=== PATIENT | male | born 1945 | race Caucasian/White ===

== ENCOUNTER 2023-08-14 08:11 | Day surgery (SDC) | payer MEDICARE, OTHER ==
[2023-08-14] MEDS ORDERED: Propofol 200 MG/20 ML SDV ONE (08:59)
[2023-08-14] MEDS ORDERED: fentaNYL 50 MCG/ML SDV ONE (08:59)
[2023-08-14] MEDS ORDERED: Lactated Ringers 1,000 ML IV SCH (09:00)
[2023-08-14 11:02] VITALS: BP 147/87; PULSE 61
== END 2023-08-14 11:22 | disposition home or self-care (01) ==
LOC: JP.SDS 08:11
PROVIDERS: ATTEND Student in an Organized Health Care Education/Training Program
DX: K29.50 Unspecified chronic gastritis without bleeding (principal); K31.7 Polyp of stomach and duodenum; K22.70 Barrett's esophagus without dysplasia; I10 Essential (primary) hypertension; K21.9 Gastro-esophageal reflux disease without esophagitis
CPT/HCPCS: 43239; 88305; J2704; J3010; J7120

== ENCOUNTER 2024-01-08 05:44 | Day surgery (SDC) | payer MEDICARE, OTHER ==
[2024-01-08] MEDS ORDERED: ceFAZolin 2 GM in Sodium Chloride 0.9% 100 ML IV ONE (06:10)
[2024-01-08 06:20] LABS: HEMATOCRIT 41.1 % (38.4-49.7); HEMOGLOBIN 14.3 g/dL (12.9-16.9); MEAN CORPUSCULAR HEMOGLOBIN 31.8 pg (31.6-35.5); MEAN CORPUSCULAR HGB CONC 34.8 g/dL (31.6-35.5); MEAN CORPUSCULAR VOLUME 91.5 fL (81.4-99.0); RED BLOOD CELL COUNT 4.49 M/uL (4.14-5.76); WHITE BLOOD CELL COUNT,WBC 5.8 K/uL (3.2-11.0)
[2024-01-08 06:41] LABS: A/G RATIO 1.1 (1.2-2.2); ALANINE AMINOTRANSFERASE,ALT 33 U/L (12-78); ALBUMIN 3.6 g/dL (3.4-5.0); ALKALINE PHOSPHATASE 96 U/L (46-116); ASPARTATE AMNIOTRANSFERASE,AST 27 U/L (15-37); BILIRUBIN TOTAL 0.8 mg/dL (0.2-1.0); BLOOD UREA NITROGEN,BUN 18 mg/dL (7-18); CARBON DIOXIDE,CO2 29 mmol/L (21-32); CHLORIDE,CL 102 mmol/L (100-108); CREATININE 1.2 mg/dL (0.8-1.3); EST CRCL DRUG DOSING (CG) 59.74 mL/min; ESTIMATED GFR 63 mL/min (>60); GLUCOSE RANDOM 136 mg/dL (74-106); POTASSIUM,K 3.6 mmol/L (3.6-5.2); PROTEIN TOTAL,TP 6.8 g/dL (6.4-8.2); SODIUM,NA 139 mmol/L (140-148)
[2024-01-08 06:44] LABS: ANION GAP 11.6 mmol/L (5.0-14.0)
[2024-01-08] MEDS: Nozin Nasal Sanitizer NASBOTH ONE (06:46)
[2024-01-08] MEDS ORDERED: fentaNYL 100 MCG/2 ML SDV ONE (07:20)
[2024-01-08] MEDS: Lactated Ringers 1,000 ML IV SCH (07:20)
[2024-01-08] MEDS ORDERED: Midazolam 1 MG/ML 2 ML SDV ONE (07:20)
[2024-01-08] MEDS ORDERED: Propofol 200 MG/20 ML SDV ONE ×3 (07:20→09:12)
[2024-01-08] MEDS: ceFAZolin 2 GM in Premix Bag 1 BAG IV ONE (07:50)
[2024-01-08] MEDS ORDERED: Lactated Ringers 1,000 ML ONE (08:06)
[2024-01-08] MEDS: Bupivacaine 0.5% 50 ML MDV ONE (09:30)
[2024-01-08] MEDS ORDERED: Ondansetron 4 MG/2 ML SDV IVPUSH PRN (09:54)
[2024-01-08] MEDS ORDERED: Morphine 2 MG/ML SYRINGE IVPUSH PRN (09:54)
[2024-01-08] MEDS ORDERED: Magnesium Hydroxide 400 MG/5 ML Susp 30 ML Cup PO PRN (09:54)
[2024-01-08] MEDS ORDERED: oxyCODONE 5 MG Tab PO PRN ×2 (09:56→09:57)
[2024-01-08] MEDS: Ketorolac 15 MG/ML SDV IVPUSH PRN (11:51)
[2024-01-08] MEDS: Acetaminophen 325 MG Tab PO SCH (11:51)
[2024-01-08] MEDS: traMADol 50 MG Tab PO PRN (14:23)
[2024-01-08] MEDS: ceFAZolin 2 GM in Premix Bag 1 BAG IV SCH (14:24)
[2024-01-08] MEDS: Sodium Chloride 0.9% 1,000 ML IV SCH (15:24)
[2024-01-08] MEDS: Docusate Sodium 100 MG Cap PO PRN (16:59)
[2024-01-08] MEDS: Nozin Nasal Sanitizer NASBOTH SCH (20:10)
[2024-01-08] MEDS: Tamsulosin 0.4 MG Cap.ER PO SCH (20:13)
[2024-01-08] MEDS: Gabapentin 300 MG Cap PO SCH (20:13)
[2024-01-08] MEDS: atorvaSTATin 20 MG Tab PO SCH (20:13)
[2024-01-09] MEDS: Pantoprazole 40 MG Tab.CR PO SCH (07:41)
[2024-01-09] MEDS: Losartan 50 MG Tab PO SCH (08:45)
[2024-01-09] MEDS: Finasteride 5 MG Tab PO SCH (08:46)
[2024-01-09] MEDS: Lactobacillus Rhamnosus GG (Probiotic) Cap PO SCH (08:46)
[2024-01-09] MEDS: Allopurinol 100 MG Tab PO SCH (08:46)
[2024-01-09] MEDS: Hydrochlorothiazide 25 MG Tab PO SCH (08:47)
[2024-01-09] MEDS: Potassium Chloride 10 MEQ Cap.ER PO SCH (08:47)
[2024-01-09] MEDS: Aspirin 325 MG Tab.EC PO SCH (08:49)
[2024-01-09 13:23] VITALS: BP 101/59; PULSE 94
== END 2024-01-09 13:54 | disposition home or self-care (01) ==
LOC: JP.SDS 05:44 → JP.MS 09:55 → JP.SDS 01-09 13:54
PROVIDERS: ATTEND Specialist
DX: M17.12 Unilateral primary osteoarthritis, left knee (principal); K21.9 Gastro-esophageal reflux disease without esophagitis; I10 Essential (primary) hypertension; E66.9 Obesity, unspecified; Z79.899 Other long term (current) drug therapy
CPT/HCPCS: 01402; 27447; 36415; 73560; 80053; 85027; 97110; 97116; 97161; 97530; A9270; C1713; C1776; J0665; J0690; J1885; J2250; J2704; J3010; J7030; J7120

== ENCOUNTER 2024-02-18 10:34 | Emergency (ER) | payer MEDICARE, OTHER ==
[2024-02-18 11:07] LABS: HEMOGLOBIN 13.3 g/dL (12.9-16.9); RED BLOOD CELL COUNT 4.18 M/uL (4.14-5.76)
[2024-02-18 11:08] LABS: BASOPHILS ABSOLUTE AUTO 0.02 K/uL (0.00-0.10); BASOPHILS PERCENT AUTO 0.4 % (0.1-1.3); EOSINOPHILS ABSOLUTE AUTO 0.16 K/uL (0.00-0.40); EOSINOPHILS PERCENT AUTO 3.2 % (0.0-5.4); HEMATOCRIT 38.7 % (38.4-49.7); LYMPHOCYTES ABSOLUTE AUTO 1.13 K/uL (0.8-3.3); LYMPHOCYTES PERCENT AUTO 22.6 % (11.4-47.7); MEAN CORPUSCULAR HEMOGLOBIN 31.8 pg (31.6-35.5); MEAN CORPUSCULAR HGB CONC 34.4 g/dL (31.6-35.5); MEAN CORPUSCULAR VOLUME 92.6 fL (81.4-99.0); MONOCYTES ABSOLUTE AUTO 0.38 K/uL (0.20-0.90); MONOCYTES PERCENT AUTO 7.6 % (3.3-12.6); NEUTROPHILS ABSOLUTE AUTO 3.29 K/uL (1.0-7.6); NEUTROPHILS PERCENT AUTO 65.8 % (40.0-78.1); PLATELET COUNT,PLT 176 K/uL (130-375)
[2024-02-18 11:09] LABS: A/G RATIO 1.2 (1.2-2.2); ALANINE AMINOTRANSFERASE,ALT 24 U/L (12-78); ALBUMIN 3.9 g/dL (3.4-5.0); ALKALINE PHOSPHATASE 121 U/L (46-116); ANION GAP 12.6 mmol/L (5.0-14.0); ASPARTATE AMNIOTRANSFERASE,AST 22 U/L (15-37); BILIRUBIN TOTAL 0.6 mg/dL (0.2-1.0); BLOOD UREA NITROGEN,BUN 19 mg/dL (7-18); CALCIUM 9.7 mg/dL (8.5-10.1); CARBON DIOXIDE,CO2 28 mmol/L (21-32); CHLORIDE,CL 100 mmol/L (100-108); CREATININE 1.2 mg/dL (0.8-1.3); ESTIMATED GFR 63 mL/min (>60); GLUCOSE RANDOM 126 mg/dL (74-106); POTASSIUM,K 3.6 mmol/L (3.6-5.2); PROTEIN TOTAL,TP 7.3 g/dL (6.4-8.2); SODIUM,NA 137 mmol/L (140-148); TROPONIN I HIGH SENSITIVITY 11.4 pg/mL (<=60.3)
[2024-02-18 11:10] LABS: PROTHROMBIN TIME 10.2 sec (9.2-10.6); PTT,PARTIAL THROMBOPLSTIN TIME 25.9 sec (21.8-27.3)
[2024-02-18] MEDS: Sodium Chloride 0.9% 10 ML Syringe FLUSH ONE (12:03)
[2024-02-18] MEDS: Iopamidol 755 Mg/ML 100 ML Bottle IV SCH (12:03)
[2024-02-18] MEDS: Sodium Chloride 0.9% 100 ML IV SCH (12:04)
[2024-02-18 13:38] VITALS: BP 146/88; PULSE 82
== END 2024-02-18 14:05 | disposition home or self-care (01) ==
LOC: JP.ED 10:34
DX: G45.9 Transient cerebral ischemic attack, unspecified (principal); I10 Essential (primary) hypertension; E78.00 Pure hypercholesterolemia, unspecified; K21.9 Gastro-esophageal reflux disease without esophagitis; E66.9 Obesity, unspecified; Z79.899 Other long term (current) drug therapy; Z79.82 Long term (current) use of aspirin; Z88.8 Allergy status to other drugs, medicaments and biological substances; Z68.32 Body mass index [BMI] 32.0-32.9, adult
CPT/HCPCS: 36415; 70450; 70496; 70498; 80053; 84484; 85025; 85610; 85730; 99285; J3490; Q9967

== ENCOUNTER 2024-08-10 05:50 | Day surgery (SDC) | payer MEDICARE, OTHER ==
[2024-08-10 06:20] LABS: HEMATOCRIT 40.1 % (38.4-49.7); HEMOGLOBIN 14.1 g/dL (12.9-16.9); MEAN CORPUSCULAR HEMOGLOBIN 33.2 pg (31.6-35.5); MEAN CORPUSCULAR HGB CONC 35.2 g/dL (31.6-35.5); MEAN CORPUSCULAR VOLUME 94.4 fL (81.4-99.0); RED BLOOD CELL COUNT 4.25 M/uL (4.14-5.76); WHITE BLOOD CELL COUNT,WBC 5.3 K/uL (3.2-11.0)
[2024-08-10 06:35] LABS: CALCIUM 9.1 mg/dL (8.5-10.1); EST CRCL DRUG DOSING (CG) 75.95 mL/min; POTASSIUM,K 3.5 mmol/L (3.6-5.2)
[2024-08-10] MEDS: Nozin Nasal Sanitizer NASBOTH ONE (06:35)
[2024-08-10 06:37] LABS: ANION GAP 9.5 mmol/L (5.0-14.0)
[2024-08-10] MEDS: Lactated Ringers 1,000 ML IV SCH (06:47)
[2024-08-10] MEDS ORDERED: ceFAZolin 2 GM in Sodium Chloride 0.9% 50 ML IV ONE (07:00)
[2024-08-10] MEDS ORDERED: fentaNYL 250 MCG/5 ML SDV ONE (07:04)
[2024-08-10] MEDS: ceFAZolin 2 GM in Premix Bag 1 BAG IV ONE (07:50)
[2024-08-10] MEDS ORDERED: Ondansetron 4 MG/2 ML SDV ONE (08:04)
[2024-08-10] MEDS ORDERED: Rocuronium 50 MG/5 ML Vial ONE (08:04)
[2024-08-10] MEDS ORDERED: Glycopyrrolate 0.2 MG/ML 5 ML MDV ONE (08:04)
[2024-08-10] MEDS ORDERED: Neostigmine Methylsulfate 10 MG/10 ML MDV ONE (08:04)
[2024-08-10] MEDS ORDERED: Propofol 200 MG/20 ML SDV ONE (08:04)
[2024-08-10] MEDS ORDERED: Dexamethasone 4 MG/ML SDV ONE (08:04)
[2024-08-10] MEDS ORDERED: Succinylcholine 200 MG/10 ML MDV ONE (08:04)
[2024-08-10] MEDS ORDERED: fentaNYL 100 MCG/2 ML SDV ONE (08:06)
[2024-08-10] MEDS ORDERED: Lactated Ringers 1,000 ML ONE (08:34)
[2024-08-10] MEDS: Bupivacaine 0.5% 30 ML SDV ONE (08:43)
[2024-08-10] MEDS: traMADol 50 MG Tab PO PRN (11:01)
[2024-08-10 11:04] VITALS: BP 124/70; PULSE 68
== END 2024-08-10 11:25 | disposition home or self-care (01) ==
LOC: JP.SDS 05:50
PROVIDERS: ATTEND Specialist
DX: M65.961 Unspecified synovitis and tenosynovitis, right lower leg (principal); M22.2X2 Patellofemoral disorders, left knee; I10 Essential (primary) hypertension; Z98.890 Other specified postprocedural states
CPT/HCPCS: 01400; 29875; 36415; 80048; 85027; A9270; J0330; J0665; J0690; J1100; J1596; J2405; J2704; J2710; J3010; J7120; J3490